=== PATIENT | female | born 1935 | race Caucasian/White ===

== ENCOUNTER 2019-01-17 07:33 | Outpatient (CLI) | payer MEDICARE, BC ==
--- NOTE | 2019-01-17 11:53 | NM ---
Exam: NUCLEAR MEDICINE PARATHYROID SCAN: HISTORY: Primary hyperparathyroidism. COMPARISON: None. TECHNIQUE: Patient was administered 25.9 mCi of technetium 99m sestamibi intravenously. Planar and SP ECT imaging performed. FINDINGS: Appropriate distribution and uptake of the radiotracer. No evidence of radiotracer in the thyroid bed on the 2 hour images. SPECT images do not demonstrate any evidence of radiotracer retention on the 1 hour image suggest a parathyroid adenoma. IMPRESSION: No scintigraphic evidence of parathyroid adenoma. RECOMMENDATION: Pre and postcontrast soft tissue neck CT utilizing parathyroid adenoma protocol. Transcribed Date/Time: 01/17/2019 12:12 PM
== END 2019-01-17 07:34 | disposition home or self-care (01) ==
LOC: NM 07:33
PROVIDERS: ATTEND Internal Medicine Nephrology
DX: E21.0 Primary hyperparathyroidism (principal)
CPT/HCPCS: 78072; A9500

== ENCOUNTER 2020-08-17 12:41 | Inpatient (IN) | payer MEDICARE, BC ==
[~2020-08-17 12:41] MED LIST: Dexamethasone 20 MG/5 ML VIAL ONE; Glycopyrrolate 0.2 MG/ML 5 ML SYRINGE ONE; Lidocaine 1% PF 5 ML VIAL ONE; Ondansetron PF 4 MG/2 ML Vial ONE; PHENYLEPHRINE-NS 100 MCG/ML 10 ML SYRINGE ONE; PROPOFOL 200 MG/20 ML VIAL ONE; Succinylcholine 200 MG/10 ml SYRINGE FS ONE
[2020-08-17 13:53] LABS: Hemoglobin 12.5 g/dL (12.0-16.0); Mean Corpuscular HGB CONC 32.4 g/dL (32.0-36.0); Mean Corpuscular Hemoglobin 32.2 pg (27.0-31.0); Mean Corpuscular Volume 99.3 fL (78.0-98.0); Platelet Count 235 thou/uL (130-400); RBC Distribution Width 12.7 % (11.5-14.5); Red Blood Cell (RBC) Count 3.89 mill/uL (4.20-5.40); White Blood Cell (WBC) Count 10.5 thou/uL (4.8-10.8)
--- NOTE | 2020-08-17 14:07 | RAD ---
XR Chest 1 View Portable History: Preop evaluation Comparison: Radiograph 2006 Findings: Heart size is enlarged. Mild pulmonary venous congestion. Scattered scarring throughout the lungs. No pneumothorax. No acute osseous abnormality. Impression: Cardiomegaly with apical scarring. No evidence for acute pneumonia.
[2020-08-17 14:09] LABS: ALT (SGPT) 8 U/L (8-55); AST (SGOT) 12 U/L (5-34); Albumin 3.5 g/dL (3.4-4.8); Alkaline Phosphatase 48 U/L (40-110); Anion Gap 13 mmol/L (10-20); BUN (Urea Nitrogen) 23 mg/dL (9.8-20.1); Calc. Creatinine Clearance 0 mL/min (70-130); Calcium 8.9 mg/dL (7.8-10.44); Carbon Dioxide 23 mmol/L (23-31); Chloride 107 mmol/L (98-107); Globulin 2.7 g/dL (2.4-3.5); Glucose 112 mg/dL (83-110); Lipase 4 U/L (8-78); Potassium 4.4 mmol/L (3.5-5.1); Protein, Total 6.2 g/dL (6.0-8.3); Sodium 139 mmol/L (136-145)
[2020-08-17 14:13] LABS: Band 37 % (5-11); Lymphocytes 3 % (21-51); MDiff Complete? YES; Metamyelocyte 5 % (0-0); Monocytes 1 % (0-10); Neutrophil 53 % (42-75); Ovalocytes SLIGHT = 2-5 cells (100X) (0-1/hpf); Platelet Morphology Comment Appears Adequate; Polychromasia SLIGHT = 2-3 cells (100X) (0-2/hpf)
--- NOTE | 2020-08-17 15:22 | HP ---
HISTORY OF PRESENT ILLNESS: Ms. Monk is an 84-year-old pleasant woman who presented to a hospital in [place] this morning complaining of insidious onset right lower quadrant abdominal pain, which started yesterday. The pain is described as sharp, occasionally crampy and associated with some nausea and anorexia. She reports recent treatment of "kidney infection," which required antibiotic treatment for 10 days, which was extended for another 10 days for a total of 20 days of oral antibiotics. During that period, she was also placed on probiotics. The patient reports chronic fatigue over the same duration, although slightly improved overall. She denies any change in her bowel habits. Last bowel movement was yesterday and was apparently normal. She denies any fevers or chills. She denies any hematochezia, melena, or unexplained weight loss. She denies having had any colonoscopies in the past. PAST MEDICAL HISTORY: Pertinent for peripheral vascular disease, coronary artery disease, and essential hypertension. PAST SURGICAL HISTORY: Pertinent for x2 through a low midline incision. Other surgeries include cervical and upper thoracic spinal fusion as well as triple vessel coronary arterial bypass graft in 2005. She has also had previous cholecystectomy. SOCIAL HISTORY: She is a retired school bus driver. She used to smoke up to a pack of cigarettes per day, did so for almost 30 years, but has not smoked over the last 20 years. She denies any ethanol or illicit drug abuse. FAMILY HISTORY: Noncontributory for this patient's age. CURRENT MEDICATIONS: 1. Amlodipine 10 mg p.o. daily. 2. Aspirin 81 mg p.o. daily. 3. Benazepril 10 mg p.o. daily. 4. Florastor 250 mg p.o. b.i.d. 5. Hydrochlorothiazide 25 mg p.o. daily. 6. Metoprolol extended release 50 mg p.o. daily. 7. Vitamin D3 1000 units p.o. daily. 8. Tramadol 50 mg one to two p.o. b.i.d. p.r.n. for pain. ALLERGIES: MEPERIDINE AND OPIOIDS, WHICH IS MORE LIKE GI UPSET OPPOSED TO TRUE ALLERGIES. REVIEW OF SYSTEMS: 10-point review of systems essentially unremarkable except as stated in past medical history and chief complaint. PHYSICAL EXAMINATION: GENERAL: This reveals an 84-year-old normally developed woman, who is otherwise coherent, interactive, and appears stated age. The patient is alert and oriented x3. She appears to be in no acute distress at the time of my evaluation. VITAL SIGNS: Blood pressure 123/43, pulse 77, respiratory rate is 18, temperature is 98.2 degrees Fahrenheit, oxygen saturation is 98% on room air. HEENT: Normocephalic and atraumatic. Pupils equally round and reactive to light and accommodation. Extraocular muscles are intact bilaterally. No scleral icterus present. Oral mucosa is pink and moist. No lesions are noted. NECK: She has no jugular venous distention noted. HEART: Regular rate and rhythm. No murmurs or gallops auscultated. LUNGS: Clear to auscultation bilaterally. Her breathing is regular and nonlabored. ABDOMEN: Soft with right lower quadrant tenderness to palpation. She has a positive Rovsing sign. She has a healed irregularly shaped infraumbilical midline incision consistent with previous history of x2. She also has a healed median sternotomy incision consistent with previous history of three-vessel coronary arterial bypass grafts. Liver and spleen otherwise nonpalpable below costal margin. NEUROLOGIC: No focal deficits present. LABORATORY FINDINGS: Today include a CBC with 10,500 white blood cells, hemoglobin and hematocrit 12.5 and 38.6 respectively, platelet count is 235,000. Metabolic profile: Sodium 139, potassium 4.4, chloride is 107, bicarb is 23, BUN 23, creatinine is 1.58, glucose 112, AST and ALT normal at 12 and 8 units/L respectively. IMAGING DATA: I have personally reviewed the CT scan of the abdomen and pelvis, which is remarkable for dilated appendix with periappendiceal fat stranding as well as inflammation around the cecum. There is scattered tiny pneumoperitoneum as well as free fluid within the pelvis. IMPRESSION: Acute appendicitis with perforation. Given this 84-year-old woman has not had any previous lower endoscopies, neoplastic process in this age group cannot be excluded as the etiology of the perforated viscus with possible secondary acute appendicitis. RECOMMENDATIONS AND PLAN: Laparoscopic appendectomy and possible exploratory laparotomy if indicated. Above findings and plan has been discussed with the patient and her adult daughter at bedside. All in the presence of the patient's nurse. I have advised the patient of the risks and benefits of the proposed surgery to include, but not limited to bleeding, infection, injury to bowel or surrounding structures. The patient is also fully aware that if neoplastic process was suspected by virtue of all operative findings, exploratory laparotomy and possible bowel resection will be contemplated at that time. I have answered her questions. The patient has granted consent for this admission and surgical intervention. Job ID: [id number]
[2020-08-17 15:30] LABS: INR-International Normal Ratio 1.2; PTT 27.6 sec (22.9-36.1); Prothrombin Time 15.2 sec (12.0-14.7)
[2020-08-17 15:45] LABS: SARS-CoV-2 NAA Rapid Test Not Detected (NotDetected)
[2020-08-17] MEDS ORDERED: Fentanyl 100 MCG/2 ML VIAL ONE ×3 (16:43→22:26)
[2020-08-17] MEDS ORDERED: Bupivacaine 0.25% HCL 30 ML VIAL ONE (17:00)
[2020-08-17] MEDS ORDERED: Lidocaine 1% w/Epinephrine 1:100K 20 ML VIAL ONE (17:00)
[2020-08-17] MEDS ORDERED: Lidocaine 2% Jelly 5 ML TUBE ONE (18:59)
[2020-08-17] MEDS ORDERED: Piperacillin/Tazobactam 3.375 GM VIAL ONE (20:33)
[2020-08-17] MEDS ORDERED: Sodium Chloride 0.9% 100 ML ONE (20:34)
[2020-08-17] MEDS ORDERED: Ondansetron PF 4 MG/2 ML Vial ONE (22:26)
[2020-08-17] MEDS ORDERED: Promethazine HCl 25 MG/ML VIAL IM PRN ×2 (22:29→22:30)
[2020-08-17] MEDS ORDERED: hydrALAZINE 20 MG/ML VIAL SLOW IVP PRN (22:29)
[2020-08-17] MEDS ORDERED: Ondansetron PF 4 MG/2 ML Vial IVP PRN (22:29)
[2020-08-17] MEDS ORDERED: Dextrose 50% Abboject 50 ML SYRINGE SLOW IVP PRN (22:29)
[2020-08-17] MEDS ORDERED: Dextrose 5% in Water 1,000 ML IV PRN (22:29)
[2020-08-17] MEDS ORDERED: Morphine 2 MG/ML VIAL SLOW IVP PRN (22:29)
[2020-08-17] MEDS ORDERED: Ondansetron HCl/PF 4 MG/2 ML Vial IVP PRN (22:30)
[2020-08-17] MEDS ORDERED: Promethazine HCl 25 MG/ML VIAL SLOW IVP PRN (22:30)
--- NOTE | 2020-08-17 23:12 | OP ---
DATE OF PROCEDURE: 08/17/2020 PREOPERATIVE DIAGNOSIS: Acute appendicitis and perforated viscus. POSTOPERATIVE DIAGNOSIS: Acute appendicitis with rupture and pelvic abscess. PROCEDURE PERFORMED: Laparoscopic appendectomy and drainage of pelvic abscess. ANESTHESIA: General endotracheal. ESTIMATED BLOOD LOSS: 5 mL. FLUIDS GIVEN: 1100 mL crystalloids. COUNTS: Sponge and instrument counts were verified as correct x2. COMPLICATIONS: None apparent at the time of operation. INDICATIONS FOR OPERATION: This is an 84-year-old woman who presented with two weeks history of "kidney infection," for which she was on antibiotics. Over the last three days, she has experienced worsening lower abdominal pain. Clinical and radiographic examination were consistent with acute appendicitis and perforated viscus, marked by pneumoperitoneum and free fluid. The patient was brought to the operating room for presumptive diagnosis of acute appendicitis with perforation. Findings are consistent with suppurative acute appendicitis with rupture at the base with extraluminal appendicolith. Also noted is extensive amount of peritoneal inflammation localized to mostly the right lower quadrant, and there is associated periappendiceal and pelvic abscesses. DESCRIPTION OF OPERATION: Informed consent obtained from the patient, who was brought to the operating room and placed in supine position. Following general anesthesia, a Hu catheter was inserted and placed to bedside drain. The abdomen was then sterilely prepped and draped in usual fashion. The patient had previously undergone multiple abdominal operations, last of which the umbilicus was excised, and given this history, we decided to enter the peritoneal cavity through the left upper quadrant. She also had had a previous cholecystectomy. To achieve this, we anesthetized the left subcostal region with 0.25% Marcaine. A 5 mm transverse incision was made here using 11 scalpel. Peritoneal cavity was then entered using a Veress needle. The abdomen was then insufflated with 2.5 L of CO2 gas noting intraabdominal pressure of 1 mmHg. Following abdominal insufflation, the Veress needle was removed and a 5 mm trocar introduced using a Visiport under laparoscopy. Laparoscopy confirmed proper placement of the port. No injuries to underlying structures. Additional laparoscopy reveals the right lower quadrant completely encased by omental adhesions. An extensive amount of inflammation marked by purulent fibrinous exudates and purulent fluid is noted in the deep pelvis. Under direct laparoscopy, two 5 mm suprapubic and left lower quadrant ports were placed after the overlying skin were infiltrated with 0.25% Marcaine with epinephrine. Appropriate incision was made. The patient was then placed in a Trendelenburg position, rotated to the left. I used an Endo suction catheter to evacuate excess purulent fluid. The omental adhesions were then bluntly dissected off the right lower quadrant to expose markedly dilated retrocecal appendix. I introduced the Endo John forceps through the suprapubic port site grasping the appendix, which was elevated. At that juncture, we noted an extraluminal piece of an appendicolith at the base of the appendix and also 5 mm hole at the base of the appendix. The appendicolith was delivered off the abdominal cavity. Mesoappendix was then sterilely divided down to the base using the LigaSure device with good hemostasis. The appendix itself was then divided at the appendicocecal junction between Endoloop. The suppurative appendix was delivered off the abdominal cavity using the EndoCatch. Operative site was irrigated with saline. Excess irrigant fluid was evacuated using suction. #19 Geovany drain was introduced into the pelvis with the tip in the right lateral gutter adjacent to the operative site. This was allowed to exit the abdominal cavity through the suprapubic port site. The drain was secured to anterior abdominal wall using 2-0 silk suture. Finding no other pathology, laparoscopy was terminated. The abdomen was desufflated. All ports and instruments removed and accounted for. Skin incisions closed using 4-0 Monocryl suture in subcuticular fashion. Dermabond was applied over incisional closure. The patient tolerated the operation without any apparent complication and was returned to the recovery room in a satisfactory condition. Job ID: [id number] [facility]
[2020-08-18] MEDS: Lactated Ringer's 1,000 ML IV SCH ×4 (00:01→20:51)
[2020-08-18] MEDS: Acetaminophen 325 MG TAB PO SCH ×2 (00:01→06:45)
[2020-08-18] MEDS: traMADol HCl 50 MG TAB PO PRN ×2 (00:08→06:43)
[2020-08-18 00:51] VITALS: BMI 18.8
[2020-08-18] MEDS ORDERED: traMADol HCl 50 MG TAB PO SCH (02:15)
[2020-08-18] MEDS: Piperacillin/Tazobactam 3.375 GM in Sodium Chloride 0.9% 100 ML IVPB SCH ×4 (02:23→20:51)
--- NOTE | 2020-08-18 04:29 | PRG ---
DATE OF SERVICE: 08/17/2020 SUBJECTIVE: Patient was seen this evening postop status post laparoscopic appendectomy and drainage of pelvic abscess by Dr. Ham earlier this evening. At the time of my evaluation, the patient reported her pain was about a 5/10. She is otherwise not having any other questions or concerns. She is tolerating some water this evening. OBJECTIVE: VITAL SIGNS: Temperature 98.5, pulse 75, respirations 16, oxygen saturation 95% on 2 L nasal cannula, blood pressure 118/63. GENERAL: Well-appearing elderly female, lying in bed with no signs of acute distress. PULMONARY: Equal chest rise and fall. No signs of acute respiratory distress. ABDOMEN: Soft, appropriately tender to palpation, nondistended. Right-sided SAMARA drain with purulent discharge in bulb. NEUROLOGIC: GCS 15. LABORATORY FINDINGS: There are no new laboratory findings to discuss. ASSESSMENT: 1. Postop day 0, status post laparoscopic appendectomy with drainage of pelvic abscess due to perforated appendicitis. 2. History of peripheral vascular disease, coronary artery disease, hypertension, chronic kidney disease, and coronary artery bypass graft. PLAN: Continue current clear liquid diet. Start physical therapy tomorrow. Continue to monitor drain output. Continue IV antibiotics. Job ID: [id number]
[2020-08-18] MEDS ORDERED: Ketorolac Tromethamine 30 MG/ML VIAL IVP SCH (06:00)
[2020-08-18 07:05] LABS: #Lymphocytes 0.5 thou/uL (1.20-3.40); #Monocytes 0.5 thou/uL (0.11-0.59); #Neutrophils 10.1 thou/uL (1.40-6.50); %Basophils 0.3 % (0.0-1.0); %Eosinophils 0.2 % (0.0-10.0); %Lymphocytes 4.8 % (21.0-51.0); %Monocytes 4.2 % (0.0-10.0); %Neutrophils 90.6 % (42.0-75.0); Hemoglobin 11.1 g/dL (12.0-16.0); Mean Corpuscular HGB CONC 32.4 g/dL (32.0-36.0); Mean Corpuscular Hemoglobin 32.4 pg (27.0-31.0); Mean Platelet Volume 9.2 fL (7.4-10.4); Platelet Count 195 thou/uL (130-400); RBC Distribution Width 12.9 % (11.5-14.5); Red Blood Cell (RBC) Count 3.41 mill/uL (4.20-5.40); White Blood Cell (WBC) Count 11.1 thou/uL (4.8-10.8)
[2020-08-18 07:23] LABS: Anion Gap 15 mmol/L (10-20); BUN (Urea Nitrogen) 30 mg/dL (9.8-20.1); Calc. Creatinine Clearance 21 mL/min (70-130); Calcium 8.8 mg/dL (7.8-10.44); Carbon Dioxide 21 mmol/L (23-31); Chloride 108 mmol/L (98-107); Glucose 132 mg/dL (83-110); Magnesium 1.6 mg/dL (1.6-2.6); Potassium 4.4 mmol/L (3.5-5.1); Sodium 140 mmol/L (136-145)
[2020-08-18] MEDS: Pantoprazole 40 MG VIAL IVP SCH (08:38)
[2020-08-18] MEDS: Saccharomyces boulardii 250 MG CAP PO SCH (08:38)
[2020-08-18] MEDS: Amlodipine 10 MG TAB PO SCH ×2 (08:39→15:52)
[2020-08-18] MEDS: Metoprolol Tartrate 25 MG TAB PO SCH ×2 (08:39→20:51)
[2020-08-18] MEDS: Enoxaparin Sodium 30 MG/0.3 ML SYRINGE SC SCH (08:39)
[2020-08-18] MEDS: Lisinopril 10 MG TAB PO SCH ×2 (08:39→15:52)
[2020-08-18] MEDS ORDERED: Famotidine 20 MG TAB PO SCH (09:00)
[2020-08-18] MEDS ORDERED: Famotidine/PF 20 mg/2ml Vial SLOW IVP SCH ×2 (09:00)
[2020-08-18] MEDS: Acetaminophen 500 MG TAB PO SCH ×3 (11:51→22:52)
[2020-08-18] MEDS: traMADol HCl 50 MG TAB PO SCH ×2 (16:02→22:52)
--- NOTE | 2020-08-18 17:26 | PRG ---
DATE OF SERVICE: 08/18/2020 SUBJECTIVE: Ms. Monk is an 84-year-old woman, postoperative day #1, status post laparoscopic appendectomy and drainage of pelvic abscess. The patient is awake and alert this morning, reporting incisional pain. She is tolerating clear liquid diet. Urinary output is adequate for this patient's age and weight. OBJECTIVE: VITAL SIGNS: This morning include blood pressure 120/59, pulse is 72, respiratory rate is 16, maximum temperature since yesterday is 98.5 degrees Fahrenheit, and oxygen saturation this morning 93% on room air. HEENT: Pupils are equally round, reactive to light and accommodation. HEART: Regular rate and rhythm. LUNGS: Clear to auscultation bilaterally. Her breathing is regular and nonlabored. ABDOMEN: Soft, moderately distended and tender to palpation. She has no peritoneal signs on examination. Jeremie-Culver drain has returned 80 mL of cloudy fluid. NEUROLOGIC: No focal deficits present. LABORATORY FINDINGS: Today include a CBC with 11,100 white blood cells, hemoglobin and hematocrit are stable at 11.1 and 34.2 respectively, and platelet count is 195,000. Metabolic profile: Sodium 140, potassium 4.4, chloride is 108, bicarb is 21, BUN is 30, creatinine is 1.64, and glucose is 132. Magnesium is 1.6 and phosphorus is 4.0. IMPRESSION: 1. Postoperative day #1, status post laparoscopic appendectomy and drainage of pelvic abscess. 2. Acute hypomagnesemia. 3. Acute kidney injury. PLAN: 1. Correct abnormal electrolytes. 2. Continue with fluid resuscitation and monitoring urinary output and serum creatinine as endpoint of our resuscitation. 3. Continue with intravenous antibiotic therapy for the acute peritonitis secondary to ruptured appendix with pelvic abscess. 4. Increase activity per Physical and Occupational Therapy. 5. Advance diet as tolerated. Above findings and plan was discussed with the patient and her adult daughter at bedside. They both indicated understanding information provided. I have answered their questions. Job ID: [id number]
[2020-08-19] MEDS: traMADol HCl 50 MG TAB PO SCH ×5 (00:08→23:48)
--- NOTE | 2020-08-19 02:54 | PRG ---
DATE OF SERVICE: 08/18/2020 SUBJECTIVE: The patient was seen this evening during rounds. She was lying in bed and reported she has about 7/10 abdominal pain. States that she has not asked for pain medications, but when she has received them before, they have helped. Nursing called to the bedside to give the patient pain medication. OBJECTIVE: VITAL SIGNS: Temperature 97.6, pulse 86, respirations 20, oxygen saturation 94% on room air, and blood pressure 146/66. GENERAL: Well-appearing elderly female, lying in bed with no signs of acute distress. ABDOMEN: Soft, mildly distended, and appropriately tender to palpation. SAMARA drain with purulent discharge and bulb. ASSESSMENT: 1. Postoperative day #1, status post laparoscopic appendectomy with drainage of pelvic abscess due to ruptured appendix with pelvic abscess. 2. History of peripheral vascular disease, coronary artery disease, hypertension, chronic kidney disease, and coronary artery bypass graft. PLAN: Continue current diet and pain regimen. Continue IV fluids. Continue to monitor pain closely as the patient does not ask for pain medications. I did discuss this with the nurse. She did work with Physical Therapy today and walked quite a bit. Monitor for return of bowel function. Job ID: [id number]
[2020-08-19] MEDS: Piperacillin/Tazobactam 3.375 GM in Sodium Chloride 0.9% 100 ML IVPB SCH ×4 (03:53→22:42)
[2020-08-19 06:09] LABS: Band 3 % (5-11); Hemoglobin 9.8 g/dL (12.0-16.0); Hypochromia SLIGHT = 6-15 cells (100X) (0-5/hpf); Lymphocytes 8 % (21-51); MDiff Complete? YES; Mean Corpuscular HGB CONC 29.7 g/dL (32.0-36.0); Mean Corpuscular Hemoglobin 29.9 pg (27.0-31.0); Mean Platelet Volume 9.4 fL (7.4-10.4); Monocytes 5 % (0-10); Neutrophil 84 % (42-75); Platelet Count 191 thou/uL (130-400); Platelet Morphology Comment Appears Adequate; RBC Distribution Width 13.1 % (11.5-14.5); Red Blood Cell (RBC) Count 3.26 mill/uL (4.20-5.40); White Blood Cell (WBC) Count 9.9 thou/uL (4.8-10.8)
[2020-08-19 06:15] LABS: Anion Gap 14 mmol/L (10-20); BUN (Urea Nitrogen) 31 mg/dL (9.8-20.1); Calc. Creatinine Clearance 22 mL/min (70-130); Calcium 8.9 mg/dL (7.8-10.44); Carbon Dioxide 22 mmol/L (23-31); Chloride 109 mmol/L (98-107); Glucose 88 mg/dL (83-110); Magnesium 1.8 mg/dL (1.6-2.6); Phosphorus 2.9 mg/dL (2.3-4.7); Potassium 4.2 mmol/L (3.5-5.1); Sodium 141 mmol/L (136-145)
[2020-08-19] MEDS: Acetaminophen 500 MG TAB PO SCH ×4 (06:29→23:47)
[2020-08-19] MEDS ORDERED: Amlodipine 10 MG TAB PO SCH (09:00)
[2020-08-19] MEDS: Saccharomyces boulardii 250 MG CAP PO SCH (09:34)
[2020-08-19] MEDS: Lisinopril 10 MG TAB PO SCH (09:34)
[2020-08-19] MEDS: Enoxaparin Sodium 30 MG/0.3 ML SYRINGE SC SCH (09:34)
[2020-08-19] MEDS: Metoprolol Tartrate 25 MG TAB PO SCH ×2 (09:34→22:42)
[2020-08-19] MEDS: Pantoprazole 40 MG VIAL IVP SCH (09:36)
--- NOTE | 2020-08-19 12:24 | PRG ---
DATE OF SERVICE: 08/19/2020 SUBJECTIVE: Ms. Monk is an 84-year-old woman who is postoperative day #2, status post laparoscopic appendectomy and drainage of pelvic abscess. The patient is awake and alert. She reports right lower quadrant abdominal pain, which she rates at 7/10 to 8/10. She has not taken enough of oral pain medications nevertheless. She is tolerating clear liquid diet. She denies passing any flatus or bowel movement. Urinary output remains adequate for the patient's age and weight. OBJECTIVE: VITAL SIGNS: Today include, blood pressure 125/71, pulse is 84, respiratory rate is 18, maximum temperature in last 24 hours is 98.4 degrees Fahrenheit, oxygen saturation is 92% on room air. HEENT: Pupils equal, round, reactive to light and accommodation. She has no jugular venous distention noted. HEART: Reveals regular rate and rhythm. LUNGS: Reveals bibasilar rhonchi. Breathing regular and nonlabored. ABDOMEN: Soft, moderately distended with gas. Incisions are intact, clean and dry. Jeremie-Culver drain return 70 mL of cloudy ascitic fluid overnight. NEUROLOGIC: Reveals no focal deficits present. LABORATORY FINDINGS: Today include, a CBC with 9,900 white blood cells, hemoglobin and hematocrit are 9.8 and 32.8 respectively. The platelet count is 191,000. Metabolic profile; sodium 141, potassium 4.2, chloride is 109, bicarb is 22, BUN 31, creatinine is 1.57, glucose is 88, magnesium 1.8, and phosphorus 2.9. IMPRESSIONS: 1. Postop day #2 status post laparoscopic appendectomy and drainage of pelvic abscess. 2. Resolving acute kidney injury. 3. Acute hypomagnesemia. 4. Acute hypophosphatemia. 5. Acute blood loss anemia. PLAN: 1. Correct abnormal electrolytes. 2. Optimize pain control. 3. Increase activity per Physical and Occupational Therapy. We will ask PM and R to evaluate the patient for possible inpatient rehabilitation post discharge. Above findings and plan discussed with the patient and her adult daughter at bedside. Both indicated understanding of information provided. I have answered their questions. Job ID: [id number]
[2020-08-19] MEDS: traMADol HCl 50 MG TAB PO PRN (16:16)
[2020-08-19] MEDS: Melatonin 3 MG TAB PO SCH (22:42)
--- NOTE | 2020-08-20 02:29 | PRG ---
DATE OF SERVICE: 08/19/2020 SUBJECTIVE: The patient was seen this evening during rounds. She was lying in bed, resting comfortably, and asleep with no signs of acute distress. Nursing reported no acute events. OBJECTIVE: VITAL SIGNS: Temperature 97.6, pulse 88, respirations 18, oxygen saturation 92% on 2 L nasal cannula, blood pressure 139/71. ASSESSMENT: 1. Postop day #2 status post laparoscopic appendectomy with drainage of pelvic abscess secondary to ruptured appendix with pelvic abscess. 2. History of peripheral vascular disease, coronary artery disease, hypertension, chronic kidney disease, and CABG. PLAN: Continue current clear liquid diet. IV fluids have been stopped. Monitor urinary output. Repeat blood work in the morning. Ambulation and sitting up in bed are paramount as we are pending return of bowel function. Also, we will become more aggressive with the incentive spirometry as the patient is now requiring oxygen and likely has related atelectasis. Job ID: [id number]
[2020-08-20] MEDS: Piperacillin/Tazobactam 3.375 GM in Sodium Chloride 0.9% 100 ML IVPB SCH ×2 (03:12→09:26)
[2020-08-20] MEDS: Acetaminophen 500 MG TAB PO SCH ×4 (05:24→23:56)
[2020-08-20] MEDS: traMADol HCl 50 MG TAB PO SCH ×4 (05:24→23:55)
[2020-08-20 05:57] LABS: #Eosinphils 0.4 thou/uL (0.0-0.7); #Lymphocytes 0.6 thou/uL (1.20-3.40); #Monocytes 0.4 thou/uL (0.11-0.59); #Neutrophils 8.3 thou/uL (1.40-6.50); %Eosinophils 4.1 % (0.0-10.0); %Lymphocytes 5.9 % (21.0-51.0); %Monocytes 4.5 % (0.0-10.0); %Neutrophils 85.5 % (42.0-75.0); Mean Corpuscular HGB CONC 31.3 g/dL (32.0-36.0); Mean Corpuscular Hemoglobin 31.9 pg (27.0-31.0); Mean Platelet Volume 9.3 fL (7.4-10.4); Platelet Count 216 thou/uL (130-400); RBC Distribution Width 12.9 % (11.5-14.5); Red Blood Cell (RBC) Count 3.45 mill/uL (4.20-5.40); White Blood Cell (WBC) Count 9.7 thou/uL (4.8-10.8)
[2020-08-20 06:16] LABS: Anion Gap 14 mmol/L (10-20); BUN (Urea Nitrogen) 28 mg/dL (9.8-20.1); Calc. Creatinine Clearance 22 mL/min (70-130); Calcium 8.9 mg/dL (7.8-10.44); Carbon Dioxide 23 mmol/L (23-31); Chloride 108 mmol/L (98-107); Glucose 74 mg/dL (83-110); Magnesium 1.7 mg/dL (1.6-2.6); Phosphorus 2.5 mg/dL (2.3-4.7); Sodium 141 mmol/L (136-145)
[2020-08-20] MEDS: Lisinopril 10 MG TAB PO SCH (09:25)
[2020-08-20] MEDS: Metoprolol Tartrate 25 MG TAB PO SCH (09:26)
[2020-08-20] MEDS: Saccharomyces boulardii 250 MG CAP PO SCH (09:26)
[2020-08-20] MEDS: Pantoprazole 40 MG VIAL IVP SCH (09:26)
[2020-08-20] MEDS: Enoxaparin Sodium 30 MG/0.3 ML SYRINGE SC SCH (09:27)
[2020-08-20] MEDS ORDERED: Magnesium 2 GM/50 ML 2 GM in Premix Bag 1 BAG IVPB SCH (10:15)
[2020-08-20] MEDS ORDERED: Magnesium Oxide 400 MG TAB PO SCH (11:45)
--- NOTE | 2020-08-20 15:09 | PRG ---
DATE OF SERVICE: 08/20/2020 SUBJECTIVE: The patient was seen during morning rounds on the surgical floor. The patient is currently awake, alert, sitting up in bed, in no distress. The patient had no overnight events. The patient states her pain is much improved. The patient does report passing flatus 4 times this morning. No bowel movement. The patient is tolerating a clear liquid diet. Urinary output is adequate for age and weight. OBJECTIVE: VITAL SIGNS: Temperature 97.4, pulse 92, respirations 16, SpO2 95% on room air, blood pressure 166/69. GENERAL: Well-appearing elderly female, in no distress. HEENT: Unremarkable, no JVD. RESPIRATORY: Respirations are even and nonlabored, bilateral breath sounds clear in upper lobes, diminished breath sounds in bilateral lower lobes. CARDIAC: Regular rate regular rhythm. No pedal edema. ABDOMEN: Soft, moderately distended with gas. No peritoneal signs. Incisions are intact, clean and dry. SAMARA drain returned 170 mL overnight cloudy yellow output. EXTREMITIES: Moves all extremities, neurovascularly intact. NEUROLOGIC: No focal deficits. LABORATORY DATA: WBC 9.7, RBC 3.45, hemoglobin 11.0, hematocrit 35.1, platelets 216, sodium 141, potassium 4.0, chloride 108, carbon dioxide 23, BUN 28, creatinine 1.51, estimated GFR 33, glucose 74, calcium 8.9, phosphorus 2.5, magnesium 1.7. DIAGNOSTICS: No new diagnostics to review today. IMPRESSION: 1. Postop day #3, status post laparoscopic appendectomy and drainage of pelvic abscess. 2. Resolving acute kidney injury. 3. Acute blood loss anemia, stable. 4. History of peripheral vascular disease. 5. Coronary artery disease. 6. Hypertension. 7. Chronic kidney disease. 8. CABG. PLAN: We will increase the patient's diet to heart healthy as tolerated. Continue physical and occupational therapy. Aggressive pulmonary toilet. We will discontinue IV antibiotics and switch to oral, as the patient will be on a regular diet. The patient has been ambulating well with physical therapy who recommended home health. Case Management has been contacted to arrange for this. We will continue to monitor SAMARA drain output. The plan was discussed with Dr. Ham. Job ID: [id number]
[2020-08-20] MEDS: Amoxicillin/Potassium Clav 875 MG TAB PO SCH (20:33)
[2020-08-20] MEDS: Melatonin 3 MG TAB PO SCH (20:33)
[2020-08-20] MEDS: Ondansetron ODT 4 MG TAB PO PRN (23:54)
[2020-08-21] MEDS: traMADol HCl 50 MG TAB PO SCH ×5 (01:57→23:51)
[2020-08-21] MEDS: Acetaminophen 500 MG TAB PO SCH ×5 (01:57→23:51)
--- NOTE | 2020-08-21 02:05 | PRG ---
DATE OF SERVICE: 08/20/2020 SUBJECTIVE: Patient was seen this evening during rounds. She was sitting up on a bedside commode. The patient did have a bowel movement. This is her first bowel movement. Nursing reported no acute events. OBJECTIVE: VITAL SIGNS: Temperature 97.6, pulse 81, respirations 18, oxygen saturation 92% on room air, blood pressure 151/72. GENERAL: Well-appearing elderly female, sitting up on commode with no signs of acute distress. ASSESSMENT: 1. Postoperative day 4, status post laparoscopic appendectomy and drainage of pelvic abscess due to ruptured appendix. 2. History of peripheral vascular disease, coronary artery disease, hypertension, chronic kidney disease, and coronary artery bypass grafting. PLAN: Continue current diet and pain regimen. Continue physical and occupational therapy. Continue aggressive pulmonary hygiene as patient likely has atelectasis. Her O2 saturation is a little bit lower than we would like. We would like to discharge her home tomorrow with oral antibiotics. She does live with her daughter. We will discuss with Dr. Ham in the morning the plan for her SAMARA drain. Job ID: [id number]
[2020-08-21 05:54] LABS: #Eosinphils 0.4 thou/uL (0.0-0.7); #Lymphocytes 0.7 thou/uL (1.20-3.40); #Monocytes 0.7 thou/uL (0.11-0.59); #Neutrophils 9.6 thou/uL (1.40-6.50); %Basophils 0.4 % (0.0-1.0); %Eosinophils 3.1 % (0.0-10.0); %Lymphocytes 6.3 % (21.0-51.0); %Monocytes 5.8 % (0.0-10.0); %Neutrophils 84.4 % (42.0-75.0); Hemoglobin 11.9 g/dL (12.0-16.0); Mean Corpuscular HGB CONC 30.8 g/dL (32.0-36.0); Mean Corpuscular Hemoglobin 31.1 pg (27.0-31.0); Mean Platelet Volume 8.9 fL (7.4-10.4); Platelet Count 274 thou/uL (130-400); RBC Distribution Width 13.1 % (11.5-14.5); Red Blood Cell (RBC) Count 3.83 mill/uL (4.20-5.40); White Blood Cell (WBC) Count 11.4 thou/uL (4.8-10.8)
[2020-08-21] MEDS: Lisinopril 10 MG TAB PO SCH (05:54)
[2020-08-21] MEDS: Ondansetron ODT 4 MG TAB PO PRN (05:54)
[2020-08-21] MEDS: Amlodipine 10 MG TAB PO SCH (06:02)
[2020-08-21 06:18] LABS: Anion Gap 16 mmol/L (10-20); BUN (Urea Nitrogen) 27 mg/dL (9.8-20.1); Calc. Creatinine Clearance 26 mL/min (70-130); Calcium 9.2 mg/dL (7.8-10.44); Carbon Dioxide 20 mmol/L (23-31); Chloride 107 mmol/L (98-107); Glucose 94 mg/dL (83-110); Magnesium 1.8 mg/dL (1.6-2.6); Phosphorus 2.4 mg/dL (2.3-4.7); Potassium 3.7 mmol/L (3.5-5.1); Sodium 139 mmol/L (136-145)
[2020-08-21] MEDS: Magnesium Oxide 400 MG TAB PO SCH (10:11)
[2020-08-21] MEDS: Saccharomyces boulardii 250 MG CAP PO SCH (10:11)
[2020-08-21] MEDS: Enoxaparin Sodium 30 MG/0.3 ML SYRINGE SC SCH (10:11)
[2020-08-21] MEDS: Amoxicillin/Potassium Clav 875 MG TAB PO SCH (10:11)
[2020-08-21] MEDS ORDERED: cloNIDine 0.1 MG TAB PO PRN (10:32)
[2020-08-21] MEDS ORDERED: Furosemide 20 MG/2 ML VIAL SLOW IVP SCH (15:15)
--- NOTE | 2020-08-21 15:22 | EKG ---
Test Reason : Blood Pressure : / mmHG Vent. Rate : 075 BPM Atrial Rate : 075 BPM P-R Int : 152 ms QRS Dur : 098 ms QT Int : 386 ms P-R-T Axes : -23 -20 -58 degrees QTc Int : 431 ms Normal sinus rhythm T wave abnormality, consider inferior ischemia T wave abnormality, consider anterolateral ischemia Abnormal ECG Confirmed by ELISABET VEGA, MARI ([id number]), acquisitions editor BERTA THAO ([id number]) on 08/21/2020 3:22:00 PM Referred By: Confirmed By:MARI BHANDARI MD
[2020-08-21] MEDS: Piperacillin/Tazobactam 3.375 GM in Sodium Chloride 0.9% 100 ML IVPB SCH ×2 (15:34→20:10)
[2020-08-21] MEDS: Melatonin 3 MG TAB PO SCH (20:10)
--- NOTE | 2020-08-21 20:49 | PRG ---
DATE OF SERVICE: 08/21/2020 SUBJECTIVE: The patient was seen during morning rounds. Awake, alert, sitting up in bed, in no distress. The patient had some nausea overnight, but it has improved. The patient is having bowel movements. The patient's pain is controlled. Urinary output has been adequate for age and weight. Abdominal drain output in the last 24 hours has been 125 mL of purulent yellow drainage. OBJECTIVE: VITAL SIGNS: Temperature 98.3, pulse 87, respirations 18, SpO2 of 94% on room air, blood pressure 156/82. GENERAL: Well-appearing, elderly female, awake, alert, in no distress. HEENT: Unremarkable, no JVD. RESPIRATORY: Respirations are even and nonlabored, no respiratory distress. CARDIAC: Regular rate and regular rhythm. No edema. ABDOMEN: Soft, less distended, no peritoneal signs. Incisions are clean, dry, and intact. EXTREMITIES: Moves all extremities, neurovascularly intact. LABORATORY DATA: WBC 11.4, RBC 3.83, hemoglobin 11.9, hematocrit 38.6, platelets 274. Sodium 139, potassium 3.7, chloride 107, BUN 27, creatinine 1.26, estimated GFR 40, phosphorus 2.4, magnesium 1.8. DIAGNOSTICS: No new diagnostics to review today. IMPRESSION: 1. Postop day #4, status post laparoscopic appendectomy and drainage of pelvic abscess. 2. Resolving acute kidney injury. 3. Acute blood loss anemia, stable. 4. History of peripheral vascular disease, coronary artery disease, hypertension, chronic kidney disease, coronary artery bypass graft. PLAN: Continue heart healthy diet as tolerated. We will restart IV antibiotics as the patient still has purulent drainage from her SAMARA drain. Continue PT and OT. The plan was discussed with Dr. Ham, who agrees. Job ID: [id number]
[2020-08-22] MEDS: Acetaminophen 500 MG TAB PO SCH ×5 (00:20→23:29)
[2020-08-22] MEDS: traMADol HCl 50 MG TAB PO SCH ×5 (00:21→23:29)
[2020-08-22] MEDS: Piperacillin/Tazobactam 3.375 GM in Sodium Chloride 0.9% 100 ML IVPB SCH ×4 (02:57→20:13)
[2020-08-22 05:15] LABS: #Eosinphils 0.6 thou/uL (0.0-0.7); #Lymphocytes 0.8 thou/uL (1.20-3.40); #Monocytes 0.8 thou/uL (0.11-0.59); #Neutrophils 6.6 thou/uL (1.40-6.50); %Eosinophils 7.2 % (0.0-10.0); %Lymphocytes 8.9 % (21.0-51.0); %Monocytes 8.9 % (0.0-10.0); Hemoglobin 11.2 g/dL (12.0-16.0); Mean Corpuscular HGB CONC 30.2 g/dL (32.0-36.0); Mean Corpuscular Hemoglobin 30.2 pg (27.0-31.0); Mean Platelet Volume 8.4 fL (7.4-10.4); Platelet Count 286 thou/uL (130-400); RBC Distribution Width 13.1 % (11.5-14.5); Red Blood Cell (RBC) Count 3.72 mill/uL (4.20-5.40); White Blood Cell (WBC) Count 8.8 thou/uL (4.8-10.8)
[2020-08-22 05:34] LABS: Anion Gap 11 mmol/L (10-20); BUN (Urea Nitrogen) 23 mg/dL (9.8-20.1); Calc. Creatinine Clearance 27 mL/min (70-130); Calcium 8.9 mg/dL (7.8-10.44); Carbon Dioxide 25 mmol/L (23-31); Chloride 108 mmol/L (98-107); Glucose 112 mg/dL (83-110); Magnesium 1.6 mg/dL (1.6-2.6); Phosphorus 2.5 mg/dL (2.3-4.7); Potassium 3.4 mmol/L (3.5-5.1); Sodium 141 mmol/L (136-145)
--- NOTE | 2020-08-22 05:43 | PRG ---
DATE OF SERVICE: 08/21/2020 SUBJECTIVE: The patient was seen this evening during rounds. She was lying in bed, resting comfortably, and asleep with no signs of acute distress. Nursing reported no acute events. OBJECTIVE: VITAL SIGNS: Temperature 97.9, pulse 78, respirations 18, oxygen saturation 95% on room air, and blood pressure 151/62. ASSESSMENT: 1. Postoperative day 4 status post laparoscopic appendectomy with drainage of a pelvic abscess secondary to a ruptured appendix. 2. History of deep venous thrombosis, coronary artery disease, hypertension, chronic kidney disease, and coronary artery bypass graft. PLAN: Continue current diet and pain regimen. Continue physical and occupational therapy. Continue IV antibiotics. The patient's lisinopril increased yesterday. Continue to monitor blood pressure. Job ID: [id number]
[2020-08-22] MEDS: Saccharomyces boulardii 250 MG CAP PO SCH (08:35)
[2020-08-22] MEDS: Magnesium Oxide 400 MG TAB PO SCH (08:35)
[2020-08-22] MEDS: Hydrochlorothiazide 25 MG TAB PO SCH (08:35)
[2020-08-22] MEDS: Amlodipine 10 MG TAB PO SCH (08:35)
[2020-08-22] MEDS: Lisinopril 20 MG TAB PO SCH (08:36)
[2020-08-22] MEDS: Enoxaparin Sodium 30 MG/0.3 ML SYRINGE SC SCH (08:36)
[2020-08-22] MEDS ORDERED: Potassium Phosphate 30 MMOL, Magnesium Sulfate 4 GM in Sodium Chloride 0.9% 250 ML IVPB SCH (09:00)
--- NOTE | 2020-08-22 18:45 | PRG ---
DATE OF SERVICE: 08/22/2020 SUBJECTIVE: The patient was seen during morning rounds. Awake, alert, sitting up in bed, in no distress. The patient had no overnight events. The patient denies any nausea. The patient's urinary output has been adequate for the patient's age and weight. OBJECTIVE: VITAL SIGNS: Temperature 98.2, pulse 88, respirations 12, SpO2 of 96% on room air, blood pressure 147/67. GENERAL: Well-appearing elderly female, awake, alert, in no distress. HEENT: Unremarkable, no JVD. RESPIRATORY: Respirations are even and nonlabored, bilateral breath sounds clear. CARDIAC: Regular rate, regular rhythm. No pedal edema. ABDOMEN: Soft, nondistended, no peritoneal signs, nontender, incisions are clean, dry, and intact. SAMARA drain, some purulent contents with yellowish fluid, output in the last 24 hours 75 mL. EXTREMITIES: Moves all extremities, neurovascularly intact x4. NEUROLOGIC: No focal deficits. GCS 15. LABORATORY DATA: WBC 8.8, RBC 3.72, hemoglobin 11.2, hematocrit 37.2, and platelets 286. Sodium 141, potassium 3.4, chloride 108, BUN 23, creatinine 1.25, estimated GFR 41, glucose 112, calcium 8.9, phosphorus 2.5, and magnesium 1.6. DIAGNOSTICS: No new diagnostics to review today. IMPRESSION: 1. Postoperative day #5, status post laparoscopic appendectomy and drainage of the pelvic abscess. 2. Resolving acute kidney injury. 3. Acute blood loss anemia, stable. 4. History of peripheral vascular disease, coronary artery disease, hypertension, chronic kidney disease, and coronary artery bypass graft. PLAN: Continue supportive care and diet as tolerated. Continue IV antibiotics. Continue to monitor SAMARA drain output. Continue PT and OT. Replace electrolytes. Repeat labs in the morning. The plan was discussed with the patient and attending, who agree. Job ID: [id number]
[2020-08-22] MEDS: Melatonin 3 MG TAB PO SCH (20:12)
--- NOTE | 2020-08-23 00:03 | PRG ---
DATE OF SERVICE: 08/22/2020 SUBJECTIVE: Patient was seen this evening during rounds. She was lying in bed, resting comfortably and asleep with no signs of acute distress. Nursing reported no acute events. OBJECTIVE: VITAL SIGNS: Temperature 97.9, pulse 80, respirations 16, oxygen saturation 92% on room air, blood pressure 151/69. ASSESSMENT: 1. Postop day 5 status post laparoscopic appendectomy with drainage of pelvic abscess secondary to ruptured appendix. 2. History of peripheral vascular disease, coronary artery disease, hypertension, chronic kidney disease, and coronary artery bypass graft. PLAN: Continue current diet and pain regimen. Continue physical and occupational therapy. Continue IV antibiotics. The patient to be reevaluated by Dr. Ham tomorrow. Possible discharge in the next 24-48 hours home with home health and oral antibiotics. Job ID: [id number]
[2020-08-23] MEDS: Piperacillin/Tazobactam 3.375 GM in Sodium Chloride 0.9% 100 ML IVPB SCH ×2 (02:40→08:37)
[2020-08-23] MEDS: traMADol HCl 50 MG TAB PO SCH ×2 (05:19→13:19)
[2020-08-23] MEDS: Acetaminophen 500 MG TAB PO SCH ×2 (05:19→13:19)
[2020-08-23 06:11] LABS: #Eosinphils 0.9 thou/uL (0.0-0.7); #Lymphocytes 1.2 thou/uL (1.20-3.40); #Monocytes 0.9 thou/uL (0.11-0.59); %Basophils 0.4 % (0.0-1.0); %Eosinophils 8.6 % (0.0-10.0); %Lymphocytes 11.7 % (21.0-51.0); %Monocytes 8.9 % (0.0-10.0); %Neutrophils 70.4 % (42.0-75.0); Mean Corpuscular HGB CONC 31.3 g/dL (32.0-36.0); Mean Corpuscular Hemoglobin 31.1 pg (27.0-31.0); Mean Corpuscular Volume 99.4 fL (78.0-98.0); Mean Platelet Volume 8.4 fL (7.4-10.4); Platelet Count 330 thou/uL (130-400); RBC Distribution Width 13.4 % (11.5-14.5); Red Blood Cell (RBC) Count 3.55 mill/uL (4.20-5.40); White Blood Cell (WBC) Count 9.9 thou/uL (4.8-10.8)
[2020-08-23 06:29] LABS: Anion Gap 14 mmol/L (10-20); BUN (Urea Nitrogen) 20 mg/dL (9.8-20.1); Calc. Creatinine Clearance 28 mL/min (70-130); Calcium 8.8 mg/dL (7.8-10.44); Carbon Dioxide 26 mmol/L (23-31); Chloride 106 mmol/L (98-107); Glucose 96 mg/dL (83-110); Magnesium 2.2 mg/dL (1.6-2.6); Phosphorus 2.9 mg/dL (2.3-4.7); Potassium 3.6 mmol/L (3.5-5.1); Sodium 142 mmol/L (136-145)
--- NOTE | 2020-08-23 06:52 | PQF ---
CLINICAL DOCUMENTATION CLARIFICATION FORM: Dear Dr. Ham Date: 08/23/20 Please exercise your independent, professional judgment in responding to the clarification form. Clinical indicators are provided on the bottom of this form for your review. Please check appropriate box(es): [ x ] Protein Calorie Malnutrition: [ ] Mild [ x] Moderate [ ] Severe [ ] Other Malnutrition (please specify) [ ] Underweight without malnutrition [ ] Cachexia [ ] Other diagnosis [ ] Unable to determine In addition, please specify: Present on Admission (POA): [ x ] Yes [ ] No [ ] Unable to determine For continuity of documentation, please document condition throughout progress notes and discharge summary. Thank You. To be completed by CDI/Coding staff for physician review: CLINICAL INDICATORS - SIGNS / SYMPTOMS / LABS / RESULTS AND LOCATION IN MR RD ASSESSMENT 08/18: "GENERALIZED MILD MUSCLE AND FAT WASTING SUGGESTIVE OF MODERATE MALNUTRITION IN THE CONTEXT OF CHRONIC ILLNESS." "-6.4 % WEIGHT CHANGE" BMI 18.9 RISK FACTORS / RESULTS AND LOCATION IN MR ADVANCED AGE RUPTURED APPENDIX AND PELVIC ABSCESS TREATMENT / RESULTS AND LOCATION IN MR DIETARY SUPPLEMENTS RECOMMENDED WHEN DIET ADVANCED (RD ASSESSMENT 08/18 / ordered 08/20) ZOFRAN PRN NAUSEA (LAST GIVEN 08/21- SEE OCT) Moderate Malnutrition (in acute illness) Energy Intake: <75% of estimated energy requirement for > 7 days Weight Loss: 1-2%/1 week; 5%/ 1 month; 7.5%/3 months Other: mild body fat loss; mild muscle mass loss; mild fluid accumulation; Severe Malnutrition (in acute illness) Energy Intake: = 50% of estimated energy requirement for = 5 days Weight Loss: >2%/1 week; >5%/1 month; >7.5%/3 months Other: moderate body fat loss; moderate muscle mass loss; moderate- severe fluid accumulation; measurably reduced it business analyst strength Moderate Malnutrition (in chronic illness) Energy Intake: <75% of estimated energy requirement for =1 month Weight Loss: 5%/1 month; 7.5%/3 months; 10%/6 months; 20%/1 year Other: mild body fat loss; mild muscle mass loss; mild fluid accumulation Severe Malnutrition (in chronic illness) Energy Intake: =75% of estimated energy requirement for =1 month Weight Loss: >5%/1 month; >7.5%/3 months; >10%/6 months; >20%/1 year Other: severe body fat loss; severe muscle mass loss; severe fluid accumulation; measurably reduced it business analyst strength CDS Signature: Lisy Penn RN Phone #: [phone] Date: 08/23/20 This is a permanent part of the Medical Record [facility]
[2020-08-23] MEDS: Enoxaparin Sodium 30 MG/0.3 ML SYRINGE SC SCH (08:37)
[2020-08-23] MEDS: Magnesium Oxide 400 MG TAB PO SCH (08:38)
[2020-08-23] MEDS: Saccharomyces boulardii 250 MG CAP PO SCH (08:38)
[2020-08-23] MEDS: Amlodipine 10 MG TAB PO SCH (08:38)
[2020-08-23] MEDS: Lisinopril 20 MG TAB PO SCH (08:38)
[2020-08-23] MEDS: Hydrochlorothiazide 25 MG TAB PO SCH (08:38)
[2020-08-23] MEDS ORDERED: Furosemide 20 MG/2 ML VIAL SLOW IVP SCH (09:30)
[2020-08-23 11:31] VITALS: BP 164/83; TEMP 97.4
[2020-08-23] MEDS: traMADol HCl 50 MG TAB PO PRN (15:10)
[2020-08-23] MEDS ORDERED: cloNIDine 0.1 MG TAB PO PRN (15:35)
--- NOTE | 2020-08-23 17:28 | DIS ---
DATE OF ADMISSION: 08/17/2020 DATE OF DISCHARGE: 08/23/2020 ADMITTING DIAGNOSES: Acute appendicitis with rupture and pelvic abscess. DISCHARGE DIAGNOSES: Acute appendicitis with rupture and pelvic abscess. OPERATIONS AND PROCEDURES: Laparoscopic appendectomy and drainage of pelvic abscess on 08/17/[address] Ham, please see separate dictation for operative report. HISTORY AND HOSPITAL COURSE: An 85-year-old woman was admitted on 08/17/2020 with worsening right-sided lower quadrant abdominal pain. Clinical and radiographic examination were consistent with acute appendicitis with pneumoperitoneum and free fluid, suggestion of perforation. The patient was taken to operating room for laparoscopic appendectomy and drainage of periappendiceal and pelvic abscesses. Following the surgery, she was admitted to general surgical floor, where she remained at time of discharge. Her care here included IV antibiotics, which were converted to oral once the patient is tolerating diet. This morning, she is evaluated, she is ambulating modestly with assistance, participating with physical and occupational therapy. She is tolerating general diet and having bowel movement. Urinary output is adequate for the patient's age and weight. The Jeremie-Culver drain has returned less than 100 mL of serous fluid over the last 24 hours, and therefore, was removed without incident. LABORATORY STUDIES: Today include a CBC with normal white blood cell count of 9900, hemoglobin and hematocrit stable at 11.0 and 35.3 respectively. Platelet count 330,000. Metabolic profile; sodium 142, potassium 3.6, chloride is 106, bicarb is 26, BUN 20, creatinine is 1.18, compared to high 1.64 on 08/18/2020, and it was 1.58 on admission on 08/17/2020. The patient has a history of stage 3 kidney disease., being followed up by Nephrology. DISCHARGE INSTRUCTIONS: She has maximized hospital benefit and will be discharged home today with the following instructions. 1. She follows up with her primary care physician within 1 week of discharge as we had made some adjustments on her antihypertensive in order to better control her blood pressure. 2. She is to follow up with me in the Surgery Clinic in 2 weeks. 3. She is to take Tylenol 650 to 1000 mg p.o. q.6 hours p.r.n. pain, alternating this with tramadol. She has a recent prescription of 100 pills of tramadol. Therefore, the patient is instructed to take tramadol 50 mg p.o. q.6 hours p.r.n. breakthrough pain. 4. She is instructed to resume all her pre-hospital medications including aspirin 81 mg p.o. daily, vitamin D3 of 4000 units p.o. daily, hydrochlorothiazide 25 mg p.o. daily, amlodipine 10 mg p.o. daily, clonidine 0.1 mg p.o. at bedtime p.r.n., metoprolol-XL 50 mg p.o. at bedtime. 5. The patient will be discharged home with home health care and physical therapy. 6. She is instructed to call me with any questions or problems including intolerance to oral intake, exacerbation of abdominal pain, any abnormal drainage from the incisional wounds, fever in excess of 101 degrees Fahrenheit. The patient indicates understanding of information provided to her in the presence of her nurse. I have answered her questions. The patient has expressed deep gratitude for the care rendered to her during this hospitalization and surgery. Job ID: [id number]
[2020-08-23] MEDS ORDERED: Lisinopril 20 MG TAB PO SCH (21:00)
[2020-08-23] MEDS ORDERED: Amoxicillin/Potassium Clav 875 MG TAB PO SCH (21:00)
== END 2020-08-23 15:34 | disposition home health service (06) | DRG 339 ==
LOC: ERS 12:41 → SURG A 14:31
PROVIDERS: ADMIT Surgery; ATTEND Surgery
PROC: 0DTJ4ZZ Resection of Appendix, Percutaneous Endoscopic Approach (ICD-10-PCS; principal; 2020-08-17)
PROC: 0W9J4ZZ Drainage of Pelvic Cavity, Percutaneous Endoscopic Approach (ICD-10-PCS; 2020-08-17)
DX: K35.33 Acute appendicitis with perforation, localized peritonitis, and gangrene, with abscess (principal); E44.0 Moderate protein-calorie malnutrition; N17.9 Acute kidney failure, unspecified; D62 Acute posthemorrhagic anemia; Z68.1 Body mass index [BMI] 19.9 or less, adult; Z20.822 Contact with and (suspected) exposure to COVID-19; I25.10 Atherosclerotic heart disease of native coronary artery without angina pectoris; E78.5 Hyperlipidemia, unspecified; M54.2 Cervicalgia; I73.9 Peripheral vascular disease, unspecified; I12.9 Hypertensive chronic kidney disease with stage 1 through stage 4 chronic kidney disease, or unspecified chronic kidney disease; N18.9 Chronic kidney disease, unspecified; G89.29 Other chronic pain; E83.42 Hypomagnesemia; Z95.1 Presence of aortocoronary bypass graft; Z87.891 Personal history of nicotine dependence; Z90.49 Acquired absence of other specified parts of digestive tract; Z88.5 Allergy status to narcotic agent; Z88.8 Allergy status to other drugs, medicaments and biological substances; Z79.82 Long term (current) use of aspirin; Z79.899 Other long term (current) drug therapy; Z86.718 Personal history of other venous thrombosis and embolism
CPT/HCPCS: 36415; 71045; 80048; 83690; 83735; 84100; 85007; 85025; 85027; 85610; 85730; 86850; 86900; 86901; 87070; 87205; 88304; 93005; C9113; J1100; J1650; J1940; J2405; J2543; J2550; J2704; J3010; J3475; J3490; J7030; P9045; Q0162; S0020; U0002

== ENCOUNTER 2020-09-14 07:13 | Outpatient (CLI) | payer MEDICARE, BC ==
--- NOTE | 2020-09-14 09:05 | CT ---
CT abdomen and pelvis noncontrast HISTORY: Prior peritoneal abscess. Follow-up. COMPARISON: 08/17/2020. FINDINGS: Small amount of right pleural fluid and mild dependent bibasilar atelectasis are now presen t. IV contrast was unable to be given due to inadequate IV access. Oral contrast was administered. Gallbladder is surgically absent. The tiny low-density lesions of the pancreas and right adrenal glan d are not well visualized without IV contrast. Stable CT appearance. Subtle hyperdense material within each renal collecting system is likely related to absorption of the oral contrast and excretion. Prominent calcification of the arterial structures. Postoperative changes right lower quadrant, including a hemostasis clip lateral to the right colon. N o significant residual stranding or residual fluid collections in the right lower quadrant. Diverticulosis without evidence of diverticulitis. Along the superficial margin of the left lower jaime drant anterior abdominal wall, a somewhat ill-defined 1.0 cm heterogeneous area of nodularity may be related to recent trauma or injection. Without internal fluid collection, it is of doubtful clinic al significance. IMPRESSION : No residual inflammation or fluid in the right lower quadrant. No new abscess collection.
== END 2020-09-14 07:14 | disposition home or self-care (01) ==
LOC: BICCT 07:13
PROVIDERS: ATTEND Surgery
DX: K65.1 Peritoneal abscess (principal)
CPT/HCPCS: 74176

== ENCOUNTER 2022-02-27 14:18 | Inpatient (IN) | payer MEDICARE, BC ==
[2022-02-27] MEDS ORDERED: Ondansetron ODT 4 MG TAB PO PRN ×2 (17:48→18:00)
[2022-02-27] MEDS ORDERED: Ondansetron PF 4 MG/2 ML Vial IVP PRN ×2 (17:49→18:00)
[2022-02-27] MEDS ORDERED: Bisacodyl 5 MG TAB PO PRN (17:51)
[2022-02-27] MEDS ORDERED: Acetaminophen 325 MG TAB PO PRN (17:51)
[2022-02-27] MEDS ORDERED: Senokot S 8.6-50 MG TAB PO PRN (17:51)
[2022-02-27 18:49] LABS: Troponin I 0.112 ng/mL (< 0.028)
[2022-02-27] MEDS: Nitroglycerin 2% Ointment 1 INCH/1 GM Packet TOP SCH (21:20)
[2022-02-27 22:04] LABS: Troponin I 0.097 ng/mL (< 0.028)
[2022-02-27] MEDS: HYDROcodone/Acetaminophen 5/325 mg Tablet PO PRN (23:50)
[2022-02-28 04:00] LABS: #Basophils 0.1 thou/uL (0.0-0.2); #Eosinphils 0.2 thou/uL (0.0-0.7); #Lymphocytes 1.4 thou/uL (1.20-3.40); #Neutrophils 5.4 thou/uL (1.40-6.50); %Eosinophils 2.5 % (0.0-10.0); %Lymphocytes 17.6 % (21.0-51.0); %Neutrophils 66.9 % (42.0-75.0); Hemoglobin 12.1 g/dL (12.0-16.0); Mean Corpuscular HGB CONC 31.9 g/dL (32.0-36.0); Platelet Count 224 thou/uL (130-400); RBC Distribution Width 14.1 % (11.5-14.5); Red Blood Cell (RBC) Count 3.68 mill/uL (4.20-5.40); White Blood Cell (WBC) Count 8.1 thou/uL (4.8-10.8)
[2022-02-28 04:21] LABS: ALT (SGPT) 11 U/L (8-55); AST (SGOT) 15 U/L (5-34); Albumin 3.6 g/dL (3.4-4.8); Alkaline Phosphatase 51 U/L (40-110); Anion Gap 15 mmol/L (10-20); BUN (Urea Nitrogen) 26 mg/dL (9.8-20.1); Bilirubin, Total 0.7 mg/dL (0.2-1.2); Calc. Creatinine Clearance 16 mL/min (70-130); Calcium 9.6 mg/dL (7.8-10.44); Carbon Dioxide 29 mmol/L (23-31); Chloride 99 mmol/L (98-107); Estimated GFR 29; Globulin 2.6 g/dL (2.4-3.5); Glucose 101 mg/dL (83-110); Potassium 4.2 mmol/L (3.5-5.1); Protein, Total 6.2 g/dL (5.8-8.1); Sodium 139 mmol/L (136-145)
[2022-02-28] MEDS: Nitroglycerin 2% Ointment 1 INCH/1 GM Packet TOP SCH ×3 (06:17→21:16)
[2022-02-28] MEDS: Aspirin Chewable 81 MG TAB PO SCH (08:58)
[2022-02-28] MEDS: Enoxaparin Sodium 30 MG/0.3 ML SYRINGE SC SCH (08:58)
[2022-02-28] MEDS ORDERED: Furosemide 20 MG/2 ML VIAL SLOW IVP SCH (12:30)
[2022-02-28] MEDS: HYDROcodone/Acetaminophen 5/325 mg Tablet PO PRN (12:58)
[2022-02-28] MEDS ORDERED: Ondansetron ODT 4 MG TAB PO PRN (15:43)
[2022-02-28] MEDS: Acetaminophen 500 MG TAB PO SCH (18:39)
[2022-02-28] MEDS: Mometasone/Formoterol 200/5 60 PUFF INH SCH (19:05)
[2022-02-28] MEDS ORDERED: methylPREDNISolone Sod Succ 40 MG VIAL IVP SCH (21:00)
[2022-02-28] MEDS: Melatonin 3 MG TAB PO SCH (21:03)
[2022-02-28] MEDS: Clindamycin 150 MG CAP PO SCH (21:03)
[2022-02-28] MEDS: traMADol HCl 50 MG TAB PO SCH (21:04)
[2022-02-28] MEDS: Furosemide 20 MG/2 ML VIAL SLOW IVP SCH (21:17)
[2022-03-01] MEDS: Acetaminophen 500 MG TAB PO SCH ×4 (03:30→18:48)
[2022-03-01] MEDS: Nitroglycerin 2% Ointment 1 INCH/1 GM Packet TOP SCH ×3 (06:43→21:42)
[2022-03-01] MEDS: Mometasone/Formoterol 200/5 60 PUFF INH SCH ×2 (07:27→19:09)
[2022-03-01] MEDS ORDERED: methylPREDNISolone Sod Succ 40 MG VIAL IVP SCH (09:00)
[2022-03-01] MEDS: Lisinopril 20 MG TAB PO SCH (12:21)
[2022-03-01] MEDS: predniSONE 20 MG TAB PO SCH (12:21)
[2022-03-01] MEDS: tiZANidine HCl 4 MG TAB PO SCH ×2 (12:22→12:29)
[2022-03-01] MEDS: Aspirin Chewable 81 MG TAB PO SCH (12:23)
[2022-03-01] MEDS: Cholecalciferol 1,000 UNITS (25 MCG) TAB PO SCH (12:25)
[2022-03-01] MEDS: Clindamycin 150 MG CAP PO SCH ×3 (12:25→20:33)
[2022-03-01] MEDS: Enoxaparin Sodium 30 MG/0.3 ML SYRINGE SC SCH (12:26)
[2022-03-01] MEDS: Furosemide 20 MG/2 ML VIAL SLOW IVP SCH (12:26)
[2022-03-01] MEDS: traMADol HCl 50 MG TAB PO SCH ×2 (12:27→20:33)
[2022-03-01 12:38] LABS: Anion Gap 17 mmol/L (10-20); BUN (Urea Nitrogen) 26 mg/dL (9.8-20.1); Calc. Creatinine Clearance 16 mL/min (70-130); Calcium 9.3 mg/dL (7.8-10.44); Carbon Dioxide 28 mmol/L (23-31); Chloride 98 mmol/L (98-107); Estimated GFR 31; Glucose 122 mg/dL (83-110); Potassium 4.1 mmol/L (3.5-5.1); Sodium 139 mmol/L (136-145)
[2022-03-01] MEDS: HYDROcodone/Acetaminophen 5/325 mg Tablet PO PRN (15:57)
[2022-03-01] MEDS ORDERED: Lactated Ringer's 1,000 ML IV SCH ×2 (19:15→22:00)
[2022-03-01] MEDS: Melatonin 3 MG TAB PO SCH (22:49)
[2022-03-01 23:13] VITALS: BP 159/62
[2022-03-02] MEDS: Acetaminophen 500 MG TAB PO SCH ×4 (03:28→17:44)
[2022-03-02 04:03] LABS: #Lymphocytes 0.7 thou/uL (1.20-3.40); #Monocytes 0.5 thou/uL (0.11-0.59); #Neutrophils 6.5 thou/uL (1.40-6.50); %Eosinophils 0.1 % (0.0-10.0); %Lymphocytes 9.3 % (21.0-51.0); %Neutrophils 83.6 % (42.0-75.0); Hemoglobin 12.9 g/dL (12.0-16.0); Mean Corpuscular HGB CONC 32.2 g/dL (32.0-36.0); Mean Corpuscular Hemoglobin 33.3 pg (27.0-31.0); Mean Platelet Volume 8.3 fL (7.4-10.4); Platelet Count 229 thou/uL (130-400); Red Blood Cell (RBC) Count 3.89 mill/uL (4.20-5.40); White Blood Cell (WBC) Count 7.7 thou/uL (4.8-10.8)
[2022-03-02 04:25] LABS: Anion Gap 24 mmol/L (10-20); BUN (Urea Nitrogen) 30 mg/dL (9.8-20.1); Calc. Creatinine Clearance 15 mL/min (70-130); Carbon Dioxide 23 mmol/L (23-31); Chloride 95 mmol/L (98-107); Estimated GFR 29; Glucose 123 mg/dL (83-110); Potassium 4.4 mmol/L (3.5-5.1); Sodium 138 mmol/L (136-145)
[2022-03-02] MEDS: Mometasone/Formoterol 200/5 60 PUFF INH SCH ×2 (06:08→18:23)
[2022-03-02] MEDS: Nitroglycerin 2% Ointment 1 INCH/1 GM Packet TOP SCH ×3 (06:26→23:36)
[2022-03-02] MEDS ORDERED: Furosemide 20 MG/2 ML VIAL SLOW IVP SCH (09:00)
[2022-03-02] MEDS ORDERED: Polyethylene Glycol 3350 17 GM Packet PO PRN (09:24)
[2022-03-02] MEDS ORDERED: Glycerin Adult Supp. (24 ct jar) PR SCH (09:30)
[2022-03-02] MEDS: Clindamycin 150 MG CAP PO SCH (10:12)
[2022-03-02] MEDS: Cholecalciferol 1,000 UNITS (25 MCG) TAB PO SCH (10:12)
[2022-03-02] MEDS: Aspirin Chewable 81 MG TAB PO SCH (10:15)
[2022-03-02] MEDS: traMADol HCl 50 MG TAB PO SCH ×2 (10:15→20:21)
[2022-03-02] MEDS: tiZANidine HCl 4 MG TAB PO SCH (10:17)
[2022-03-02] MEDS: Enoxaparin Sodium 30 MG/0.3 ML SYRINGE SC SCH (10:17)
[2022-03-02 12:24] VITALS: BMI 15.5
[2022-03-02] MEDS: Lisinopril 20 MG TAB PO SCH (12:50)
[2022-03-02] MEDS: predniSONE 20 MG TAB PO SCH (12:50)
[2022-03-02 19:24] VITALS: TEMP 98.8
[2022-03-02] MEDS: Melatonin 3 MG TAB PO SCH (23:36)
[2022-03-03] MEDS ORDERED: Polyethylene Glycol 3350 17 GM Packet PO SCH (09:00)
[2022-03-06] MEDS ORDERED: predniSONE 20 MG TAB PO SCH (08:00)
[2022-03-09] MEDS ORDERED: predniSONE 20 MG TAB PO SCH (08:00)
== END 2022-03-02 23:29 | disposition short-term general hospital (02) | DRG 306 ==
LOC: 2NO 17:23 → OBSVTOIN 02-28 17:43 → IMCU/EMU 03-01 22:25
PROVIDERS: ADMIT Hospitalist; ATTEND Hospitalist
DX: I35.0 Nonrheumatic aortic (valve) stenosis (principal); E43 Unspecified severe protein-calorie malnutrition; I50.23 Acute on chronic systolic (congestive) heart failure; I24.8 Other forms of acute ischemic heart disease; Z68.1 Body mass index [BMI] 19.9 or less, adult; N17.9 Acute kidney failure, unspecified; I13.0 Hypertensive heart and chronic kidney disease with heart failure and stage 1 through stage 4 chronic kidney disease, or unspecified chronic kidney disease; I25.10 Atherosclerotic heart disease of native coronary artery without angina pectoris; I73.9 Peripheral vascular disease, unspecified; I44.7 Left bundle-branch block, unspecified; N18.30 Chronic kidney disease, stage 3 unspecified; J43.9 Emphysema, unspecified; G89.28 Other chronic postprocedural pain; D63.1 Anemia in chronic kidney disease; R11.0 Nausea; Z20.822 Contact with and (suspected) exposure to COVID-19; Z88.5 Allergy status to narcotic agent; Z88.8 Allergy status to other drugs, medicaments and biological substances; Z95.1 Presence of aortocoronary bypass graft; Z79.82 Long term (current) use of aspirin; Z79.899 Other long term (current) drug therapy; I25.2 Old myocardial infarction; Z90.49 Acquired absence of other specified parts of digestive tract; Z87.891 Personal history of nicotine dependence; Z95.5 Presence of coronary angioplasty implant and graft
CPT/HCPCS: 36415; 71250; 80048; 80053; 85025; 93005; 93010; 94640; 94760; 96372; 96374; 96376; 97139; G0378; J1650; J1940; J2405; J7120; J7512; J7620; U0003; U0005